=== PATIENT | female | born 1990 | race Caucasian/White ===

== ENCOUNTER 2018-07-10 02:49 | Inpatient (IN) ==
[2018-07-10] MEDS ORDERED: RINGER'S SOLUTION,LACTATED 1,000 ML IV ONE (05:22)
[2018-07-10] MEDS ORDERED: CITRIC ACID/SODIUM CITRATE 60 ML BTL PO ONE (06:05)
[2018-07-10] MEDS ORDERED: ONDANSETRON HCL/PF 2 MG/ML VIAL IV PRN (06:07)
[2018-07-10] MEDS ORDERED: NALOXONE HCL 1 MG/1 ML SYRG IV PRN (06:07)
[2018-07-10] MEDS ORDERED: BUPIVACAINE HCL/0.9 % NACL/PF 250 ML EP PRN (06:07)
[2018-07-10] MEDS ORDERED: fentaNYL CITRATE/PF 50 MCG/ML AMPUL IT ONE (06:15)
[2018-07-10] MEDS ORDERED: CLINDAMYCIN PHOSPHATE 900 MG in DEXTROSE 5 % IN WATER 100 ML IV SCH ×2 (06:15)
--- NOTE | 2018-07-10 06:47 | ANES ---
Addendum entered and electronically signed by Conrad Nobles CRNA 07/10/18 06:46 : Patient is an active labor, requesting labor analgesia. Plan combination spinal epidural for labor analgesia. Original Note: Anesthesia Pre Procedure Eval HOME MEDICATIONS calcium carbonate 200 mg calcium (500 mg) chewable tablet 600 mg PO QID PRN tab 05/05/18 [Last Taken 07/09/18] ferrous sulfate 325 mg (65 mg iron) tablet 325 mg PO DAILY tab 05/05/18 [Last Taken 07/09/18] vitamin,calcium,khddcgru-sddx-sdcwh acid tablet 1 tab PO DAILY tab 04/17 [Last Taken 07/08/18] Wheat Dextrin [Benefiber] 1 each PO DAILY 07/09/18 [Last Taken 07/09/18] Allergies/Adverse Reactions: Allergies Allergy/AdvReac Type Severity Reaction Status Date / Time amoxicillin [Amoxicillin] Allergy Hives Verified 06/02/18 10:14 latex AdvReac Intermediate RASH Verified 06/02/18 10:14 adhesive tape AdvReac rash Verified 07/10/18 02:56 - Planned Procedure Planned Procedure: LABOR Medication List Reviewed:: Yes Allergies Verified: Yes Medical History (Last Reviewed 07/10/18 @ 06:45 by Conrad Nobles CRNA) Anemia affecting Dizziness Drowsiness Irregular menstrual cycle Major depression, recurrent Psoriasis Scoliosis Abnormal Pap smear of cervix Depression Onset Date: ~2004 Ovarian cyst Onset Date: ~2010 Suicidal ideation Onset Date: ~2004 Surgical History (Last Reviewed 07/10/18 @ 06:45 by Conrad Nobles CRNA) History of wisdom tooth extraction Onset Date: ~2012 Family History (Last Reviewed 07/10/18 @ 06:45 by Conrad Nobles CRNA) Father Rheumatoid arthritis Mother Alive and well Daughter Asthma Grandfather Liver failure Grandmother Cancer - Family Anesthesia History Family History:: no untoward family reactions to anesthesia, no familial bleeding tendencies, no family history of clotting disorders, no family history of premature - Airway/Neck/Teeth Within Normal Limits:: Yes Teeth Condition: Intact Neck Exam: non-tender, full range of motion Mallampatti Score: 2 Thyromental (T-M) distance: > 6 cm Mandibulo Hyoid distance: > 3 cm - Respiratory Respiratory: chest non-tender, lungs clear Smoking Status: Never smoker Sleep Apnea currently treated: No Sleep Apnea by current assessment: No - Cardiovascular Patient History - Cardiac/Respiratory: No pertinent hx Tolerates Activity: Fair Heart Sounds: S1 & S2, Regular - Anesthesia Assessment and Plan ASA Class: PS, II, E Anesthesia Type Plan: Epidural Planned difficult intubation/equipment available: No
--- NOTE | 2018-07-10 07:11 | ANES ---
Post Anesthesia Discharge - Transfer of Care Transfer of Care handoff given to nurse: Yes - Discharge to ASU Discharge to ASU-no complications/pt stable: Yes - Comfortable now
--- NOTE | 2018-07-10 07:15 | ANES ---
Anesthesia Procedure Note Procedure Note: ANESTHESIA PROCEDURE NOTE Date of Procedure: 07/10/2018 Time of procedure: 6:40 AM. Performed by: FREIDA Vee CRNA, MSN Commercial Correspondent: Shaunna Kaminski RN. Preprocedure diagnosis: Active labor, labor pain. Post procedure diagnosis: Same. Procedure:Epidural for labor analgesia L34. Indications: Labor pain. Findings: See below. Details of the procedure: The patient was placed on the side of the bed in sitting positionand prepped with DuraPrep then draped in a sterile fashion. Prior to injecting local anesthesia Yaniv became lightheaded and then symptomatic as preparing to take out. Maintaining sterile field she was assisted to a right lateral position where her symptoms dissipated. After further instruction, we proceeded to place the epidural in the right lateral position. Lidocaine 1% was infiltrated to the skin and subcutaneous tissues at the level of the L3 4 interspace. An 18-gauge Touhy needle was used to approach the epidural space with loss of resistance technique. Once loss of resistance was achieved a 27-gauge spinal needle was passed through the epidural needle and CSF was contacted. After CSF returned, 20 mcg of fentanyl was injected in the spinal needle was removed the epidural catheter was then threaded approximately 4 cm in the epidural needle was removed. The catheter was taped in place and after careful aspiration 3 mL of 1.5% lidocaine with 1- 200,000 epinephrine was injected without change in maternal heart rate or sensorium. . EBL: Minimal. Fluids: N/A. Specimen: N/A. Post procedure condition: The patient tolerated the procedure well with. Good Relief. No complications were noted. Thank you for this consultation. Conrad Nobles CRNA, ARNP, MSN
--- NOTE | 2018-07-10 07:19 | ANES ---
Post Anesthesia Assessment - Vital Signs Airway Patency: Normal - Mental Status Level Of Consciousness: Awake, Alert, Appropriate - Pain Level Pain Score: 0 - N/V Assessment Nausea/Vomiting Presence: None Dehydration:: No
[2018-07-10] MEDS ORDERED: DEXTROSE 5%-LACTATED RINGERS 1,000 ML IV PRN (07:54)
--- NOTE | 2018-07-10 08:41 | HP ---
Chief Complaint - Chief Complaint Date of Service: 07/10/18 Time of Service: 08:22 Chief Complaint: contractions History of Present Illness: 27yo at 37 1/7 wks presents to L&D complaining of contractions. This complicated by anemia, depression, history of prior baby with heart defect. Rh positive Rubella immune GBS positive Medical History (Last Reviewed 07/10/18 @ 06:45 by Conrad Nobles CRNA) Anemia affecting Dizziness Drowsiness Irregular menstrual cycle Major depression, recurrent Psoriasis Scoliosis Abnormal Pap smear of cervix Depression Onset Date: ~2004 Ovarian cyst Onset Date: ~2010 Suicidal ideation Onset Date: ~2004 Surgical History: Surgical History (Last Reviewed 07/10/18 @ 06:45 by Conrad Nobles CRNA) History of wisdom tooth extraction Onset Date: ~2012 Family History: Family History (Last Reviewed 07/10/18 @ 06:45 by Conrad Nobles CRNA) Father Rheumatoid arthritis Mother Alive and well Daughter Asthma Grandfather Liver failure Grandmother Cancer Social History: Preferred Language Faroese Smoking Status Never smoker Abuse History No History of abuse Psych History No pertinent hx Review Of Systems (GEN) - Review of Systems EENTM: Present: No Symptoms Reported Respiratory: Present: No Symptoms Reported Cardiac: Present: No Symptoms Reported Abdominal: Present: Nausea, Vomiting Genitourinary: Present: Other - contractions 0150 Musculoskeletal: Present: No Symptoms Reported Neurological: Present: No Symptoms Reported Skin: Present: No Symptoms Reported Endocrine: Present: No Symptoms Reported Immunizations: IMMUNIZATION HX History of Influenza Vaccine Yes Hx Pneumococcal Vaccination No Allergies/Adverse Reactions: Allergies Allergy/AdvReac Type Severity Reaction Status Date / Time amoxicillin [Amoxicillin] Allergy Hives Verified 06/02/18 10:14 latex AdvReac Intermediate RASH Verified 06/02/18 10:14 adhesive tape AdvReac rash Verified 07/10/18 02:56 Home Medications: HOME MEDICATIONS calcium carbonate 200 mg calcium (500 mg) chewable tablet 600 mg PO QID PRN tab 05/05/18 [Last Taken 07/09/18] ferrous sulfate 325 mg (65 mg iron) tablet 325 mg PO DAILY tab 05/05/18 [Last Taken 07/09/18] vitamin,calcium,jttqntek-qrta-pyghb acid tablet 1 tab PO DAILY tab 04/17 [Last Taken 07/08/18] Wheat Dextrin [Benefiber] 1 each PO DAILY 07/09/18 [Last Taken 07/09/18] Exam - Exam Vital Signs: T 36.4c, P 85, R 16, BP 110/73 Constitutional: Present: Alert, Oriented x3, Cooperative ENT Exam: Present: hearing grossly normal Back Exam: Present: no CVA tenderness Respiratory: Present: lungs clear, no respiratory distress Cardiovascular/Chest: Present: regular rate, rhythm, no edema Abdomen: Present: soft, nontender, other - gravid Extremity: Present: non-tender, no pedal edema, no calf tenderness Skin Exam: Present: normal color, warm/dry, no cyanosis Lymphatic: Present: no adenopathy Neurologic: Present: alert, normal mood/affect, oriented x 3 Appearance: Present: appropriate appearance, appropriate insight Eye contact: Present: cooperative, good eye contact Thoughts: Present: normal thought pattern Assessment/Plan - Assessment/Plan (1) Labor established Assessment: Admit for labor. Epidural PRN. IV clindamycin for GBS prophylaxis due to PCN allergy. Problem: Acute (2) Group B streptococcal carriage complicating Problem: Acute
--- NOTE | 2018-07-10 08:51 | OR ---
Operative Report - Dictated Report Narrative: Patient comfortable with epidural Vital signs stable. FHT: 140 baseline, reassuring Contractions were every 5-8 minutes Cervix: 6/90/-1, AROM-clear at 0812 Impression: Intrauterine at 37-1/7 weeks in labor. GBS positive - status post IV clindamycin at 0615 Plan: Continue present plan
[2018-07-10] MEDS ORDERED: BENZOCAINE/MENTHOL 81 SPRAY CAN TP PRN (10:49)
[2018-07-10] MEDS ORDERED: OXYTOCIN/DEXTROSE 5%-WATER 30 UNITS/500 ML BAG IV ONE (10:49)
[2018-07-10] MEDS ORDERED: HYDROCORTISONE 30 APPL TUBE TP PRN (10:49)
[2018-07-10] MEDS ORDERED: oxyCODONE HCL/ACETAMINOPHEN 1 TAB TABLET PO PRN ×2 (10:49)
[2018-07-10] MEDS ORDERED: BISACODYL 10 MG SUPP.RECT RC PRN (10:49)
[2018-07-10] MEDS ORDERED: SENNOSIDES 8.6 MG TABLET PO PRN (10:49)
[2018-07-10] MEDS ORDERED: CALCIUM CARBONATE 500 MG TAB.CHEW PO PRN (10:50)
--- NOTE | 2018-07-10 10:52 | OR ---
Operative Report - Dictated Report Narrative: Spontaneous vaginal delivery of viable male at 1033 on 07/10/2018 with Apgars 9 and 9, weighing 3068 g in MAGGIE position with tight nuchal cord 1 and foot cord 1. Cord clamping delayed approximately 1 minute Placenta delivered complete, intact, with three vessel cord Estimated blood loss: less than 50 ml Anesthesia: epidural Lacerations: Right periurethral abrasion and perineal abrasion with no repair needed History for MU Definition: * The number of deliveries resulting in a live the patient experienced prior to current hospitalization * The previous delivery of live twins or any live multiple gestation is considered one live event. *If primagravida or nulliparous is documented select zero for the number of previous live births. Live Events: 2
[2018-07-10] MEDS: IBUPROFEN 800 MG TABLET PO PRN ×2 (13:17→19:50)
[2018-07-10] MEDS: GLYCERIN/WITCH HAZEL LEAF 40 APPL BOX TP PRN (15:38)
[2018-07-10] MEDS: DOCUSATE SODIUM 100 MG CAPSULE PO SCH (20:04)
[2018-07-10] MEDS: ACETAMINOPHEN 500 MG TABLET PO PRN (22:17)
[2018-07-11] MEDS: IBUPROFEN 800 MG TABLET PO PRN ×4 (03:02→23:11)
[2018-07-11] MEDS: DOCUSATE SODIUM 100 MG CAPSULE PO SCH ×3 (06:43→21:55)
[2018-07-11] MEDS: ACETAMINOPHEN 500 MG TABLET PO PRN (06:43)
--- NOTE | 2018-07-11 09:16 | PN ---
Subjective - Date and Time Seen Date: 07/11/18 Time: 09:16 Objective - Vitals Vitals: Last Vital Signs Temp 36.9 C 07/11/18 06:57 Pulse 79 07/11/18 06:57 Resp 18 07/11/18 06:57 BP 104/53 07/11/18 06:57 Pulse Ox 98 07/11/18 06:57 Patient denies complaints. Lochia wnl Abdomen - soft, nontender Uterus - firm, at umbilicus - 1 No calf tenderness Impression: day #1 - s/p spontaneous vaginal delivery. Plan: Continue routine care Assessment/Plan - Problems/Diagnosis (1) Labor established Problem: Acute (2) Group B streptococcal carriage complicating Problem: Acute
[2018-07-11] MEDS: FERROUS SULFATE 325 MG TABLET PO SCH (09:33)
[2018-07-11] MEDS: PRENATAL VITS96/IRON FUM/FOLIC 1 TAB TABLET PO SCH (09:34)
[2018-07-11] MEDS: PSYLLIUM SEED 1 PACKET PACKET PO SCH (09:34)
[2018-07-11] MEDS ORDERED: NEOMYCIN/BACITRACIN/POLYMYXINB 15 APPL TUBE TP PRN (14:30)
[2018-07-11] MEDS: GLYCERIN/WITCH HAZEL LEAF 40 APPL BOX TP PRN (17:06)
[2018-07-12] MEDS: ACETAMINOPHEN 500 MG TABLET PO PRN (03:23)
--- NOTE | 2018-07-12 04:30 | PN ---
Subjective - Date and Time Seen Date: 07/12/18 Time: 04:29 Objective - Vitals Vitals: Last Vital Signs Temp 36.7 C 07/11/18 15:02 Pulse 68 07/12/18 03:33 Resp 18 07/12/18 03:33 BP 107/59 07/12/18 03:33 Pulse Ox 97 07/12/18 03:33 Patient denies complaints. Lochia wnl Abdomen - soft, nontender Uterus - firm, at umbilicus - 2 No calf tenderness Impression: day #2 - s/p spontaneous vaginal delivery. Plan: Routine discharge instructions Assessment/Plan - Problems/Diagnosis (1) Labor established Problem: Acute (2) Group B streptococcal carriage complicating Problem: Acute
[2018-07-12] MEDS: IBUPROFEN 800 MG TABLET PO PRN (07:08)
[2018-07-12] MEDS: DOCUSATE SODIUM 100 MG CAPSULE PO SCH (08:35)
[2018-07-12] MEDS: PRENATAL VITS96/IRON FUM/FOLIC 1 TAB TABLET PO SCH (08:35)
[2018-07-12] MEDS: FERROUS SULFATE 325 MG TABLET PO SCH (08:36)
[2018-07-12] MEDS: PSYLLIUM SEED 1 PACKET PACKET PO SCH (08:36)
[2018-07-12 11:04] VITALS: BP 113/60
== END 2018-07-12 10:50 | disposition home or self-care (01) | DRG 775 ==
LOC: OBCLINIC 02:49 → OB 06:05
PROVIDERS: ADMIT Obstetrics & Gynecology; ATTEND Obstetrics & Gynecology
CPT/HCPCS: 59025